=== PATIENT | male | born 1940 | race Caucasian/White ===

== ENCOUNTER → 2024-04-02 | Day surgery (SDC) | payer BC ==
[~2024-04-02] MED LIST: LIDOCAINE 1% (10MG/ML) FOR IV START INTRADERMA PRN; LIDOCAINE 1% INJ 10MG/ML (20 ML MDV) ONE; PROPOFOL 10 MG/ML 20 ML VIAL IV ONE
[2024-04-02] MEDS: LACTATED RINGERS 1,000 ML IV SCH (11:39)
[2024-04-02 11:47] VITALS: RESP 16; TEMP 97.2
--- NOTE | 2024-04-02 11:53 | P.PCN ---
Date of Procedure: 04/02/24 Procedure(s) Performed: BRIEF HISTORY: Patient is a 83-year-old, pleasant, white male scheduled for an upper endoscopy as a part evaluation of intermittent dysphagia to solids t for the last 6 months to 1 year duration.. PROCEDURE PERFORMED: Esophagogastroduodenoscopy. PREOPERATIVE DIAGNOSIS: Intermittent dysphagia to solids. IV sedation per anesthesia. PROCEDURE: After informed consent was obtained, the patient was brought into the endoscopy unit. IV sedation was administered by Anesthesia under continuous monitoring. Initially the Olympus GIF-140 video endoscope was inserted into the mouth. Esophagus intubated without any difficulty. It was gradually advanced into the stomach and duodenum and carefully examined. The bulb and the second part of the duodenum appeared normal. The scope at this time was withdrawn to the stomach, adequately insufflated with air, and upon careful examination, mucosa of the antrum, body, cardia and the fundus appeared normal. The scope was then withdrawn into the esophagus. Moderate to large size hiatal hernia noted. The GE junction was located at 40 cm from the incisors. 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 Proximal to the segment of Bae's esophagus revealed linear erosions with 1 superficial ulceration consistent with LA grade C reflux esophagitis. The rest of the esophagus appeared normal. The patient tolerated the procedure well. IMPRESSION: 1. Large hiatal hernia. 2. Linear erosions of the distal esophagus extending from 35 to 40 cm of the incisors consistent with LA grade C reflux esophagitis 3. 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 RECOMMENDATIONS: The findings of this examination were discussed with the patient as well as his family. He was advised to follow-up with the biopsy results. He was advised to increase Protonix to 40 mg twice daily and follow antireflux measures. If the biopsy confirms the presence of Bae's esophagus, recommend an upper endoscopy in 2 to 3 years.
[2024-04-02 12:44] VITALS: BP 132/73; PULSE 50
== END ==
LOC: ORWHC2ENDO 10:32
PROVIDERS: ATTEND Internal Medicine Gastroenterology
DX: K22.70 Barrett's esophagus without dysplasia (principal); K44.9 Diaphragmatic hernia without obstruction or gangrene; K29.50 Unspecified chronic gastritis without bleeding; K21.00 Gastro-esophageal reflux disease with esophagitis, without bleeding; I25.10 Atherosclerotic heart disease of native coronary artery without angina pectoris; I10 Essential (primary) hypertension; F17.200 Nicotine dependence, unspecified, uncomplicated; Z88.0 Allergy status to penicillin; Z79.899 Other long term (current) drug therapy
CPT/HCPCS: 88305; 43239; J2001; J2704